=== PATIENT | female | born 1985 | race Asian ===

== ENCOUNTER 2021-12-29 16:01 | Emergency (ER) | payer OTHER ==
[~2021-12-29] VITALS: Ht 172.7 cm; Wt 83.0 kg
[2021-12-29 16:20] VITALS: BP 186/114; TEMP 97.6
== END 2021-12-29 16:50 | disposition home or self-care (01) ==
LOC: ED 16:01
DX: T18.198A Other foreign object in esophagus causing other injury, initial encounter (principal); X58.XXXA Exposure to other specified factors, initial encounter; Y92.89 Other specified places as the place of occurrence of the external cause
CPT/HCPCS: 99281

== ENCOUNTER 2022-07-12 11:07 | Outpatient (CLI) | payer OTHER | END 2022-07-12 17:00 | disposition home or self-care (01) | LOC: US 11:07 | PROVIDERS: ATTEND Nurse Practitioner Primary Care | DX: R13.19 Other dysphagia (principal) ==

== ENCOUNTER 2022-07-25 20:41 | Emergency (ER) | payer OTHER | END 2022-07-25 21:20 | disposition left against medical advice (07) | LOC: ED 20:41 | DX: Z53.21 Procedure and treatment not carried out due to patient leaving prior to being seen by health care provider (principal) | CPT/HCPCS: 99281 ==

== ENCOUNTER 2022-10-19 11:26 | Emergency (ER) | payer OTHER ==
[~2022-10-19] VITALS: Ht 172.7 cm; Wt 80.7 kg
[2022-10-19 11:30] VITALS: TEMP 99.6
[2022-10-19 13:39] VITALS: BP 147/77
== END 2022-10-19 13:39 | disposition home or self-care (01) ==
LOC: ED 11:26
DX: B34.9 Viral infection, unspecified (principal)
CPT/HCPCS: 87502; 87635; 87651; 99283; U0003